=== PATIENT | female | born 1995 | race Caucasian/White ===

== ENCOUNTER 2018-02-16 21:48 | Emergency (ER) | payer SELFPAY | END 2018-02-16 21:49 | disposition left against medical advice (07) | LOC: D.ER 21:48 | DX: T24.002A Burn of unspecified degree of unspecified site of left lower limb, except ankle and foot, initial encounter (principal); X08.8XXA Exposure to other specified smoke, fire and flames, initial encounter; Y93.9 Activity, unspecified; Y92.9 Unspecified place or not applicable ==

== ENCOUNTER 2018-02-21 14:34 | Emergency (ER) | payer MEDICAID ==
[~2018-02-21] VITALS: Ht 165.1 cm; Wt 72.7 kg
[2018-02-21 14:51] VITALS: BP 108/61; Ht 165.1 cm; Wt 72.7 kg
[2018-02-21] MEDS ORDERED: BACTRIM DS TABL1 TAB PO (14:52)
[2018-02-21] MEDS ORDERED: TORADOL10 MG PO (15:29)
== END 2018-02-21 15:45 | disposition home or self-care (01) ==
LOC: D.ER 14:34
DX: T24.002A Burn of unspecified degree of unspecified site of left lower limb, except ankle and foot, initial encounter (principal); X18.XXXA Contact with other hot metals, initial encounter; Y93.89 Activity, other specified; Y92.89 Other specified places as the place of occurrence of the external cause; Z76.0 Encounter for issue of repeat prescription; F17.200 Nicotine dependence, unspecified, uncomplicated